=== PATIENT | female | born 1955 | race Caucasian/White ===

== ENCOUNTER → 2023-10-18 | Outpatient (CLI) | payer OTHER, SELFPAY ==
--- NOTE | 2023-10-18 13:00 | NEURO ---
NCS and/or EMG Patient Report Ordering Doctor: Sachin Parikh DATE OF SERVICE: 10/18/23 Jo-Ann presents for electrodiagnostic testing of the left upper limb. She reports numbness and tingling in the left hand and intermittent left-sided neck and upper extremity pain. Electrodiagnostic findings: Left median motor nerve demonstrates normal distal latency, amplitude and conduction velocity. Normal left ulnar motor response, including conduction across the elbow. Prolonged left median sensory latency at the wrist. Normal ulnar and radial sensory responses. Needle EMG testing was performed in the left upper limb. All muscles tested, including cervical paraspinals, showed no evidence of denervation with normal motor unit action potentials. Electrodiagnostic impression: This is an abnormal study in the left upper limb 1. Electrodiagnostic findings suggestive of left-sided median mononeuropathy. This is consistent with a mild left carpal tunnel syndrome. 2. No electrodiagnostic evidence is noted for cervical radiculopathy. Multi Select Codes Neurology Neurology Interp Codes: 00678-05 Musc test done w/n test comp (interp) and 73024-23 Nrv cndj test 7-8 studies (interp)
== END | disposition home or self-care (01) ==
PROVIDERS: PCP Family Medicine; Referring Provider Orthopaedic Surgery; Visit Provider Orthopaedic Surgery
DX: M54.12 Radiculopathy, cervical region (principal); R20.2 Paresthesia of skin
CPT/HCPCS: 95886; 95910

== ENCOUNTER 2025-04-14 09:04 | Day surgery (SDC) | payer OTHER, SELFPAY ==
--- NOTE | 2025-03-25 12:12 | EKG12_ITS ---
Test Reason : PREOP Blood Pressure : */* mmHG Vent. Rate : 63 BPM Atrial Rate : 63 BPM P-R Int : 162 ms QRS Dur : 92 ms QT Int : 412 ms P-R-T Axes : 48 10 49 degrees QTcB Int : 421 ms Normal sinus rhythm Normal ECG Confirmed by Ulysses Marks ([id number]), winding inspector and tester PB GOODMAN ([id number]) on 03/31/2025 12:51:07 PM Referred By: ALIE Confirmed By: Ulysses Marks
[2025-03-25 13:56] LABS: Absolute Lymphocyte Count 2.23 X10^3/uL (0.83-4.51); Absolute Neutrophil Count 4.8 X10^3/uL (2.0-7.7); Basophil# 0.03 X10^3/uL; Basophil% 0.4 % (0-1); Eosinophil# 0.12 X10^3/uL; Eosinophils% 1.6 % (0-5); Hematocrit 37.8 % (37-47); Hemoglobin 12.3 g/dL (12.0-15.0); Lymphocyte # 2.23 X10^3/ul (0.83-4.51); Lymphocyte % 28.9 % (19-41); Mean Corp Hgb Conc 32.5 g/dL (32-36); Mean Corpuscular Hgb 29.1 pg (27.0-32.0); Mean Corpuscular Volume 89.4 fL (81-99); Mean Platelet Vol. 9.9 fl (6.2-12.0); Monocyte% 6.5 % (0-10); NRBC Flagged by Analyzer 0 % (0-5); Neutrophil % 62.2 % (47-70); Platelet Count 287 K/mm3 (150-450); RBC Distribution Width CV 13.2 % (11.6-14.6); RBC Distribution Width SD 43.4 fl (35.1-43.9); Red Blood Count 4.23 M/mm3 (4.2-5.4); White Blood Count 7.7 K/mm3 (4.4-11.0)
[2025-03-25 14:21] LABS: Hemoglobin A1c 7.2 % (<=5.6)
[2025-03-25 14:35] LABS: Albumin, Serum 4.4 g/dL (3.4-4.8); Anion Gap 12 (5-15); BUN 11 mg/dL (4-19); BUN/Creat Ratio 16.4 RATIO (10-20); Calcium,Total 9.8 mg/dL (7.6-11.0); Carbon Dioxide 24.3 mmol/L (21.0-32.0); Chloride 105 mmol/L (98-108); Creatinine, Serum 0.69 mg/dL (0.70-1.20); EST Glomerular Filtration Rate 93 (>60); Glucose 129 mg/dL (70-99); Magnesium 1.9 mg/dL (1.5-2.2); Sodium Level 141 mmol/L (133-145)
[2025-04-14] VITALS (15 sets, daily range): BP systolic 103–144; BP diastolic 50–70; PULSE 49–78; RESP 16–18; TEMP 36.1–36.5; O2SAT 92–98; BMI 32.3
[2025-04-14] MEDS: Celecoxib 200 MG Capsule 400 MG PO (09:59)
[2025-04-14] MEDS: Magnesium 2 GM for ERAS IV (09:59)
[2025-04-14] MEDS: LR 1,000 ML - BOLUS PREOP 999 ML IV (09:59)
[2025-04-14] MEDS: Gabapentin 600 MG Tablet PO (10:00)
[2025-04-14] MEDS: Acetaminophen 500 MG Tablet 1000 MG PO (10:00)
[2025-04-14 10:05] LABS: Bedside Glucose 139 mg/dL (74-106)
--- NOTE | 2025-04-14 10:34 | PCM.PRE.AN2 ---
ASA Classification* ASA Classification ASA Classification: 2 Assessment & Plan Anesthesia* Anesthesia Assessment Anesthesia Assessment: Discussed sedation and/or anesthesia options, risks, benefits, and alternatives with patient/parents/legal guardian/POA. Questions invited. The patient/parents/legal guardian/POA seems to understand and agrees to proceed with anesthesia plan. Reviewed the physical assessment, medical history, allergy history and patient home medications list prior to surgery/procedure/anesthetic and documented any changes. Performed airway and anesthesia risk assessments. Anesthesia Type Anesthesia Type: General and Block (Patient is consented for interscalene block.) History Source History Obtained from:: Patient and Chart Anesthesia Focused Assessment* Temperature: 97.4 F Pulse Rate: 66 Blood Pressure: 116/70 Respiratory Rate: 16 Pulse Ox: 98 Oxygen Delivery Method: Room Air Airway Assessment Mouth opens: >3 cm Mallampati Score: III Teeth Condition: Implants (Patient has a left lower implant. It is tight.) Neck Range of motion (ROM): Full ROM Labs Anesthesia Preop lab: CBC WBC 7.7 K/mm3 (4.4-11.0) 03/25/25 12:43 03/25/25 RBC 4.23 M/mm3 (4.2-5.4) 03/25/25 12:43 03/25/25 Hgb 12.3 g/dL (12.0-15.0) 03/25/25 12:43 03/25/25 Hct 37.8 % (37-47) 03/25/25 12:43 03/25/25 Plt Count 287 K/mm3 (150-450) 03/25/25 12:43 03/25/25 CHEMISTRY Potassium 4.0 mmol/L (3.3-5.1) 03/25/25 12:43 03/25/25 Sodium 141 mmol/L (133-145) 03/25/25 12:43 03/25/25 Magnesium 1.9 mg/dL (1.5-2.2) 03/25/25 12:43 03/25/25 BUN 11 mg/dL (4-19) 03/25/25 12:43 03/25/25 Creatinine 0.69 mg/dL (0.70-1.20) L 03/25/25 12:43 03/25/25 Glucose 129 mg/dL (70-99) H 03/25/25 12:43 03/25/25 POC Glucose 139 mg/dL (74-106) H 04/14/25 09:44 04/14/25 COAG Pre-Assessment Diagnosis/Proposed Procedure Planned Operative Procedure(s): (R) Total Shoulder Replacement, Reverse Anesthesia History Anesthesia History - sort operations supervisor: Anesthesia History - sort operations supervisor Hx Hospitalization No 03/19/25 10:50 Any Problems With Anesthesia Yes: N&V, AMNESIA NOTED ALSO 03/19/25 10:50 Cholinesterase deficiency No 03/19/25 10:50 You/Your Family Experience No 03/19/25 10:50 fever (hyperthermia) with Relationship Recent Exposure to Contagious No 04/14/25 09:40 Disease Does patient have nerve No 03/19/25 10:50 stimulator Patient instructed to have device shut off --Does patient have Pacemaker No 04/14/25 09:40 or ICD? When Was Last Pacemaker Check QUESTION #4 FULL TEXT: You/Your Family Experience fever (hyperthermia) with Anesthesia Last Oral Intake Last Oral intake: Last Oral Intake NPO since Meds taken in AM with sips of water? Meds patient instructed to take am of surgery Any additional information?: Yes NPO since: 00:00 Meds taken in AM with sips of water?: Yes Meds patient instructed to take am of surgery: Omeprazole PONV PONV - sort operations supervisor: PONV - sort operations supervisor Female Yes 03/19/25 10:50 HX of Motion Sickness No 03/19/25 10:50 HX of N/V After Surgery No 03/19/25 10:50 Non-Smoker Yes 03/19/25 10:50 Duration of Surgery greater Yes 03/19/25 10:50 than 60 minutes Number of Risk Factors 3 03/19/25 10:50 PONV Score Moderate Risk 03/19/25 10:50 Height & Weight Height & Weight: Anesthesia: Height & Weight Height 5 ft 5 in 04/14/25 09:40 Weight: 88 kg 04/14/25 09:40 Body Mass Index (BMI) 32.3 04/14/25 09:40 Respiratory Assessment Respiratory Assessment - sort operations supervisor: Respiratory Tract Infection Hx - sort operations supervisor Hx Respiratory Tract Infection No 03/19/25 10:50 STOP Sleep Apnea STOP Sleep Apnea - sort operations supervisor: STOP Sleep Apnea - sort operations supervisor Hx Hypertension No 03/19/25 10:50 Hx Sleep Apnea No 03/19/25 10:50 CPAP No 03/19/25 10:50 BIPAP Do you snore loudly (louder No 03/19/25 10:50 than talking or can be heard Do you often feel tired/ No 03/19/25 10:50 fatigued/ sleepy during daytime? Has anyone observed you stop No 03/19/25 10:50 breathing during sleep? STOP Results Negative 03/19/25 10:50 QUESTION #5 FULL TEXT : Do you snore loudly (louder than talking or can be heard through closed doors)? Tobacco Use History Tobacco Use History - sort operations supervisor: Tobacco Use History - sort operations supervisor Tobacco Use Smoking Status Never smoker 03/19/25 10:50 Hx Tobacco Use No 03/19/25 10:50 Years Smoking Packs Smoked per Day Smoking Cessation Date was within the last 15 years Hx Smoking Cessation Date Hx Smoking Cessation Counseling Hematologic Medial History Hematologic Hx - sort operations supervisor: Hematologic Medical Hx - rivet sorter Hx of Blood Transfusion No 03/19/25 10:50 Hx of Transfusion in last 3 No 03/19/25 10:50 Months Date of Last Transfusion (if within last 3 months) Ever experience any problems No 03/19/25 10:50 with transfusion(s)? Specify any problems Hx of Preganancy in last 3 No 03/19/25 10:50 Months Nurse Filling Out Transfusion VCHRISTIN 03/19/25 10:50 & Questions: Date: 03/19/25 03/19/25 10:50 Time: 10:52 03/19/25 10:50 Patient unable to answer at this time (ie. confused, unrespo /Reproduction History /Reproductive History - sort operations supervisor: /Reproductive Hx- sort operations supervisor Hx Now No 03/19/25 10:50 Gestational Age (in weeks): EDC: Hx Hx Para Hx Section SAB No 03/19/25 10:50 Active Medications Active Medications: Current Medications Generic Name Dose Route Start Last Admin Trade Name Freq PRN Reason Stop Dose Admin Acetaminophen 1,000 mg 04/14/25 12:55 04/14/25 10:00 Acetaminophen 500 Mg Tablet PO 04/14/25 12:56 1,000 mg PREOP ONE Administration Celecoxib 400 mg 04/14/25 12:55 04/14/25 09:59 Celecoxib 200 Mg Capsule PO 04/14/25 12:56 400 mg PREOP ONE Administration Dexamethasone Sodium Phosphate 10 mg 04/14/25 12:55 Dexamethasone 10 Mg/Ml Vial IV 04/14/25 12:56 INTRAOP ONE Gabapentin 600 mg 04/14/25 12:55 04/14/25 10:00 Gabapentin 600 Mg Tablet PO 04/14/25 12:56 600 mg PREOP ONE Administration Lactated Ringer's 1,000 mls @ 999 mls/hr 04/14/25 12:55 04/14/25 09:59 IV 04/14/25 13:55 999 mls/hr .Q1H1M SWAPNA Administration Cefazolin Sodium 2 gm/ Sodium 110 mls @ 150 mls/hr 04/14/25 12:55 Chloride IV 04/14/25 13:38 INTRAOP ONE Tranexamic Acid 1,000 mg/ 110 mls @ 660 mls/hr 04/14/25 12:55 Sodium Chloride IV 04/14/25 13:04 INTRAOP ONE Tranexamic Acid 1,000 mg/ 110 mls @ 660 mls/hr 04/14/25 12:55 Sodium Chloride IV 04/14/25 13:04 INTRAOP ONE Lactated Ringer's 1,000 mls @ 999 mls/hr 04/14/25 12:55 IV 04/14/25 13:55 .Q1H1M SWAPNA Lactated Ringer's 1,000 mls @ 125 mls/hr 04/14/25 12:55 IV 04/14/25 20:54 .Q8H SWAPNA Magnesium Sulfate 2 gm/ 104 mls @ 208 mls/hr 04/14/25 12:55 04/14/25 09:59 Dextrose IV 04/14/25 13:24 208 mls/hr INTRAOP ONE Administration Insulin Human Lispro 1 - 6 unit 04/14/25 12:55 Insulin Lispro 100 Unit/Ml Insuln.Pen SC 04/14/25 18:00 Q4H PRN PRN BG>/= 180, SEE PROTOCOL Protocol PFSH Medical History Wears glasses Post-menopausal Diabetes High cholesterol Back pain Amnesia Seizures History of diverticulitis Gastric reflux History of skin cancer Home Medications ?Medication ?Instructions ?Recorded ?Last Taken ?Type multivitamin (Multiple Vitamins 1 ea PO DAILY 06/28/17 Unknown History tablet) atorvastatin 20 mg tablet 20 mg PO QHS 03/19/25 Unknown History estradiol 0.01% (0.1 mg/gram) 1 appful vaginal .TWICE WEEKLY 03/19/25 Unknown History vaginal cream omeprazole 20 mg tablet,delayed 20 mg PO DAILY 03/19/25 04/14/25 00:00 History release semaglutide 2 mg/dose (8 mg/3 mL) 2 mg subcut QWEEK 03/19/25 04/07/25 History subcutaneous pen injector (Ozempic) Allergy/AdvReac Type Severity Reaction Status Date / Time diclofenac Allergy Unknown Verified 04/14/25 09:39 morphine AdvReac Vomiting Verified 04/14/25 09:39 Surgical History History of back surgery Hx of vein stripping History of carpal tunnel surgery of left wrist Hx of hernia repair History of colon resection History of hip replacement History of bone graft History of bilateral knee replacement History of carpal tunnel surgery of right wrist Hx of colonoscopy Hx of foot surgery Hx of bilateral breast reduction surgery Hx of tonsillectomy Hx of hysterectomy Social History Smoking Status: Never smoker Review of Systems (Anesthesia) ROS Narrative System reviewed and no additional complaints, except as documented.
[2025-04-14] MEDS: Cefazolin 2 GM in 0.9% Normal Saline (100mL Bag) 100 ML IV (11:21)
[2025-04-14] MEDS: TXA 1000mg in NS100 100ml (IVPB at Incision) 660 MG IV (11:24)
[2025-04-14] MEDS: dexAMETHasone 10 MG/ML Vial IV (11:24)
[2025-04-14] MEDS: TXA 1000mg in NS100 100ml (IVPB at Closure) 660 MG IV (12:25)
--- NOTE | 2025-04-14 12:51 | RAD_ITS ---
PROCEDURE: SHOULDER MIN 2 VIEWS 04/14/2025 REASON FOR EXAM: POST OP R RSA TECHNIQUE: SHOULDER MIN 2 VIEWS COMPARISON: None FINDINGS: The patient is status post right reverse shoulder replacement. There is good alignment. Postoperative soft tissue changes. RAD/Shoulder min 2 Views IMPRESSION: Status post right reverse shoulder replacement. There is good alignment. Postoperative soft tissue changes. Reading Location: [facility]
--- NOTE | 2025-04-14 12:53 | OP.PCM_ITS ---
Operative Report (Standard) Operative Information Date of Procedure: 04/14/25 Pre-Operative Diagnosis: 1. Right shoulder glenohumeral joint primary osteoarthritis 2. Right shoulder rotator cuff tear Post-Operative Diagnosis: 1. Right shoulder glenohumeral joint primary oste oarthritis 2. Right shoulder rotator cuff tear Surgery/Procedure Performed: Right reverse total shoulder arthroplasty telecommunication operator: Yes Special Education Math Teacher: Nohemi Calzada Tasks completed by certified anesthesiologist assistant: Opening & closing, Implanting device, Hemostasis: Electrocautery and Retracting Additional personal assistant?: No Type of Anesthesia: General/Regional RN Documented Start/Stop Times: Operation Date: 04/14/25 11:15 Case Time Into Pre-Op 04/14/25 09:11 Anesthesia Start 04/14/25 11:05 Into Room 04/14/25 11:05 Out of Pre-Op 04/14/25 11:05 Procedure Start 04/14/25 11:36 Procedure End 04/14/25 12:39 Anesthesia End 04/14/25 12:45 Out of Room 04/14/25 12:45 Procedure Start Time: 11:36 Procedure Stop Time: 12:39 Select all DRAINS/GRAFTS/IMPLANTS that apply: Implanted device Implanted device details: Tornier Aequalis PerFORM+ reversed baseplate 25 mm full wedge augment, standard glenosphere cobalt chrome 39 mm diameter, Tornier perform inlay stem size # 2, + 3 mm retentive size number 2 39 mm diameter polyethylene insert, long central post and peripheral screws x3. Estimated Blood Loss: 50 cc Specimen collected: No Description of surgery: Patient arrived to [facility] morning of the procedure and was greeted by the same day surgery staff. Prior to her procedure, I greeted the patient in the preoperative holding area. I identified the patient by name, record number, and date of . Informed consent was confirmed. The oper ative extremity was marked. All questions were answered to patient satisfaction. An interscalene block was administered prior to procedure by anesthesia staff for postoperative and intraoperative analgesia. At time of his her procedure, patient was brought to the operative suite and positioned supine on a standard table with a beachchair attachment. General anesthesia was induced after all bony prominences were well-padded. Endotracheal tube was placed. After adequate anesthesia and securing the tube, we prepared the patient to be positioned in the beachchair position. A well- padded head pumper was applied. The nonoperative extremity was placed in a well arm mcpherson. He was then brought into the beachchair position after we confirmed an appropriate blood pressure. We then spun the bed 45 degrees. The operative extremity was then prepared. In the butterfly wing of the bed was removed and a well-padded torso strap was applied to secure the patient to the bed. The operative extremity was now free. We then prepped and draped the right upper extremity in normal, sterile orthopedic fashion. We then performed a timeout with all parties in attendance in agreement with the side, site, and operation be performed. 2 g Ancef was administered prior to incision by anesthesia staff, as well as 1 g TXA IV. No concerns were voiced and we elected to proceed. I first marked a standard deltopectoral incision just lateral to the coracoid process in line with the long axis of the humerus. Skin was sharply incised with 10 blade scalpel. I then dissected bluntly through the subcutaneous layers and found the fat stripe between the deltoid and pectoralis major. The cephalic vein was then identified and protected. It was retracted laterally with the deltoid. I then bluntly dissected underneath the deltoid with a Lance elevator. Era retractor was placed. The upper 1 cm of the pectoralis major was released. I then identified the long head of the biceps tendon in the intertubercular groove. This was tenodesed in situ with #2 FiberWire. I then amputated the biceps proximal to the tenodesis site and followed the tendon to the supraglenoid tubercle where it was amputated. This identified the lesser and greater tuberosities. Small full-thickness tear is noted of the anterior margin of the supraspinatus. I then performed a subscapularis peel while rotating the humerus externally. I tagged the subscapularis for possible repair later with a tagging suture. Humeral head was then dislocated anteriorly. Appropriate access to the humeral head was confirmed. I then subluxed the humeral head posteriorly with a Fukuda retractor placed around the posterior lip of the glenoid. Inferior capsule was tension. I was able to palpate the axillary nerve. Inferior capsule was then released to the 4 o'clock position of the glenoid face. 3 sided subscapularis release was performed with Bovie cautery. I then remove the Fukuda retractor and redislocated the shoulder anteriorly. I then made a anatomic neck cut of the cartilaginous surface of the humeral head. Sizing plate for a size # 2 stem was utilized to determine appropriate reaming size. A central pin was placed engaging the lateral cortex of the humerus. A size # 2 reamer was used to ream the humeral metaphysis and prepare for the inlay stem. A canal finding reamer was utilized prior to sequential broaching to a size # 2 short stem with excellent rotational and axial purchase in the humerus. I remove the broach handle left the size # [address] I then subluxed the humerus posterior to the glenoid. I then placed retractors around the posterior and anterior glenoid to expose the glenoid. Glenoid labrum was removed with Bovie cautery protecting the axillary nerve. We then used the full wedge guide from Vaishali to position our centering pin, exiting approximately 25 mm from the joint surface along the anterior scapula. Guide was removed and pin was analyzed and compared to preoperative planning. It appeared to be in appropriate position. The wedge reamer was then placed over top of the centering pin. I reamed for the wedge down to bleeding bone. We then removed the reamer and used the cannulated drill for the long central post. Post and baseplate was assembled on the back table. We then inserted the baseplate and central post the assembled baseplate to an appropriate depth with good press-fit purchase. A Berwick was used to confirm depth. Cortical screws then were placed in the peripheral holes with good purchase. The baseplate had excellent purchase and the entire scapula would rotate with rotation of the baseplate. We then impacted the 39 mm glenosphere with a standard eccentricity and tightened the locking screw mechanism. We then removed retractors and turned our attention back to the humerus. I placed a standard +3 millimeters retentive polyethylene insert. I then reduced the shoulder. There was excellent range of motion and stability in all planes of motion. We selected this as our final size. We removed trials from the humerus after final dislocation. I copiously irrigated the canal. Broach was placed on hand and then impacted to an appropriate depth. Final + 3 mm retentive polyethylene insert was placed. Final reduction was then performed. The subscapularis was then identified with a tagging suture. Repair would have been likely under undue tension and likely failed. I elected to not perform a subscapularis repair. We then copiously irrigated the wound with sterile Betadine and normal saline solution. We reapproximated the interval with 0 Vicryl suture. Subcutaneous layers were reapproximated with 2 -0 Vicryl suture. Skin was finally running V- Loc 3-0 Monocryl suture and Dermabond. A sterile silver Mepilex dressing was applied. Patient was then placed in an ultra sling. Patient tolerated procedure well without complication. She was positioned back in the supine position extubated in the operative suite. She was transferred to the [facility] and subsequently to PACU in stable condition. Need for skilled personal assistant: Nohemi Calzada PA-C was critical to the outcome of the case. During the course of the procedure the physician personal assistant played a vital role. Her intimate knowledge of my steps in the procedure aided in safe and expedient completion of the procedure. The PA played a vital role in positioning particularly in obtaining the appropriate positioning. The PA was also vital in the retraction of soft tissues during the exposure and protecting vital structures. The PA was also vital and protecting soft tissues during times of bony cuts. She also played a vital role in closure with my direct supervision. The PA was also important during reduction and dislocation of the joint and trials intraoperatively. Intraoperative medications: 2 g Ancef IV, 1 g TXA IV x2 Post Operative Plan: Weightbearing: Nonweightbearing right upper extremity, okay for pendulums. Range of motion of wrist elbow and hand as tolerated. Antibiotics: 2 g Ancef IV prior to incision, 1 dose prior to discharge today. DVT Prophylaxis: Aspirin enteric-coated 81 mg twice daily starting tomorrow x 2 weeks Fraga: None Dressing: Maintain silver dressing x5 days. Okay to shower dressing on started on day 4 X-Rays: 2 weeks postop in the office Pain Medication: Oxycodone Rx upon discharge, Tylenol and meloxicam Follow-up: 2 weeks post-operatively with me in the office Surgical Findings: Severe right shoulder osteoarthritis. Full-thickness supraspinatus tear. Stable reverse following final reduction. Complications Complications: No Admit VTE Documentation VTE Present on Admission: No VTE Mechan Device Prophylaxis: SCD's VTE Pharm Prophylaxis ordered?: Yes
[2025-04-14] MEDS: LR 1,000 ML - BOLUS POSTOP 999 ML IV (12:55)
--- NOTE | 2025-04-14 13:00 | PCM.POST.ANE ---
Anesthesia: Postop Eval I Current Vital Signs Temperature: 97 F Pulse Rate: 77 Blood Pressure: 144/59 Respiratory Rate: 16 Pulse Ox: 93 Oxygen Delivery Method: Room Air Fraction of Inspired Oxygen (FIO2): 21 Assessment Airway patent: Yes Spontaneous unlabored respirations: Yes Mental status: Awake nausea: No Vomiting: No Anesthesia Complication: No Fluid Hydration Crystalloid volume administer (ml): 1,000 Total IV fluid infused: 1,000 Progress Note Post-operative progress note: VSS see PACU notes for details Anesthesia document: Postop Eval 1 completed: Yes
[2025-04-14 13:27] LABS: Bedside Glucose 127 mg/dL (74-106)
--- NOTE | 2025-04-14 14:04 | POSTOPAN2_ITS ---
Anesthesia Postop Eval I Sum Postop Eval Completion status Anesthesia document: Postop Eval 1 completed: Yes Anesthesia Postop Eval I Summary Anesthesia Postop Eval I Summary: Anesthesia Postop Eval I: Assessment Summary Airway patent Yes 04/14/25 13:01 TAILOR [email or web address] Spontaneous unlabored Yes 04/14/25 13:01 TAILOR APPRENTICE.DBAK respirations Mental status Awake 04/14/25 13:01 TAILOR APPRENTICE.[email or web address] nausea No 04/14/25 13:01 TAILOR APPRENTICE.DBAK Vomiting No 04/14/25 13:01 TAILOR APPRENTICE.DBAK Anesthesia Postop Eval I: Fluid Summary Crystalloid volume administer 1,000 04/14/25 13:01 TAILOR APPRENTICE.DBAK (ml) Colloids volume administered ( ml) Blood Product volume administered (ml) Total IV fluid infused 1,000 04/14/25 13:01 TAILOR APPRENTICE.DBAK Anesthesia Postop Eval I: Summary Notes Anesthesia Complication No 04/14/25 13:01 TAILOR APPRENTICE.DBAK Anesthesia Complication Comment: Post-operative progress note VSS see PACU notes 04/14/25 13:01 TAILOR APPRENTICE.[email or web address] for details Anesthesia: Postop Eval II Evaluation Mental status: Calm Pain Level: 2 nausea: No Vomiting: No
--- NOTE | 2025-04-14 14:04 | PCM.POSTANE2 ---
Anesthesia Postop Eval I Sum Postop Eval Completion status Anesthesia document: Postop Eval 1 completed: Yes Anesthesia Postop Eval I Summary Anesthesia Postop Eval I Summary: Anesthesia Postop Eval I: Assessment Summary Airway patent Yes 04/14/25 13:01 DRIVER [email or web address] Spontaneous unlabored Yes 04/14/25 13:01 DRIVER GUIDE.[email or web address] respirations Mental status Awake 04/14/25 13:01 DRIVER GUIDE.[email or web address] nausea No 04/14/25 13:01 DRIVER GUIDE.DBAK Vomiting No 04/14/25 13:01 DRIVER GUIDE.DBAK Anesthesia Postop Eval I: Fluid Summary Crystalloid volume administer 1,000 04/14/25 13:01 DRIVER GUIDE.DBAK (ml) Colloids volume administered ( ml) Blood Product volume administered (ml) Total IV fluid infused 1,000 04/14/25 13:01 DRIVER GUIDE.DBAK Anesthesia Postop Eval I: Summary Notes Anesthesia Complication No 04/14/25 13:01 DRIVER GUIDE.DBAK Anesthesia Complication Comment: Post-operative progress note VSS see PACU notes 04/14/25 13:01 DRIVER GUIDE.DBAK for details Anesthesia: Postop Eval II Evaluation Mental status: Calm Pain Level: 2 nausea: No Vomiting: No
[2025-04-14] MEDS: Cefazolin 1 GM/50 ML BAG IV (15:53)
== END 2025-04-14 16:45 | disposition home or self-care (01) ==
LOC: SDC 09:05 → AC 09:08
PROVIDERS: PCP Family Medicine; Referring Provider Student in an Organized Health Care Education/Training Program; Visit Provider Student in an Organized Health Care Education/Training Program
PROC: (CPT 23472; principal; 2025-04-14 10:45)
DX: M75.101 Unspecified rotator cuff tear or rupture of right shoulder, not specified as traumatic (principal); E11.40 Type 2 diabetes mellitus with diabetic neuropathy, unspecified; M19.011 Primary osteoarthritis, right shoulder; M79.7 Fibromyalgia; E78.00 Pure hypercholesterolemia, unspecified; K21.9 Gastro-esophageal reflux disease without esophagitis; M51.369 Other intervertebral disc degeneration, lumbar region without mention of lumbar back pain or lower extremity pain; Z87.19 Personal history of other diseases of the digestive system; Z79.85 Long-term (current) use of injectable non-insulin antidiabetic drugs; Z79.899 Other long term (current) drug therapy
CPT/HCPCS: 23472; 01638; 64415; 36415; 73030; 80048; 82040; 82962; 83036; 83735; 85025; 87081; 93005; C1713; C1776; J2405

== ENCOUNTER 2025-08-14 05:25 | Day surgery (SDC) | payer OTHER, SELFPAY ==
[2025-08-14] VITALS (12 sets, daily range): BP systolic 108–149; BP diastolic 55–83; PULSE 56–77; RESP 16; TEMP 36.1–36.7; O2SAT 92–100; BMI 27.8
[2025-08-14] MEDS: LR 1,000 ML - BOLUS PREOP 999 ML IV (05:55)
[2025-08-14 07:04] LABS: Magnesium 1.8 mg/dL (1.5-2.2)
[2025-08-14] MEDS: Scopolamine 1mg/72hr Patch 1 PATCH TD (07:20)
[2025-08-14] MEDS: Midazolam 2 MG/2 ML Syringe IV (07:20)
[2025-08-14] MEDS: Magnesium 2 GM for ERAS IV (07:27)
[2025-08-14] MEDS: Cefazolin 1 GM/5 ML Vial 2 GM IV (07:34)
[2025-08-14] MEDS: Lidocaine 1% (5 ml sdv) 5 ML Vial 6 ML IV (07:40)
[2025-08-14] MEDS: TRANEXAMIC ACID 1,000 MG/10 ML ML 2000 MG IV (08:40)
[2025-08-14] MEDS: Cefazolin 1 GM/50 ML BAG IV (10:52)
== END 2025-08-14 12:06 | disposition home or self-care (01) ==
LOC: SDC 05:25 → AC 05:27
PROVIDERS: Anesthesiology; PCP Family Medicine; Referring Provider Student in an Organized Health Care Education/Training Program; Visit Provider Student in an Organized Health Care Education/Training Program
PROC: (CPT 23472; principal; 2025-08-14 07:00)
DX: M19.012 Primary osteoarthritis, left shoulder (principal); E11.9 Type 2 diabetes mellitus without complications; E78.00 Pure hypercholesterolemia, unspecified; K21.9 Gastro-esophageal reflux disease without esophagitis; Z79.84 Long term (current) use of oral hypoglycemic drugs; Z79.85 Long-term (current) use of injectable non-insulin antidiabetic drugs; Z79.899 Other long term (current) drug therapy
CPT/HCPCS: 23472; 64415; 01638; 73030; 82962; 83036; 83735; C1776; J2405